=== PATIENT | female | born 2000 | race Hispanic/Latino ===

== ENCOUNTER 2024-05-21 21:09 | Emergency (ER) | payer OTHER ==
[~2024-05-21] VITALS: Ht 152.4 cm; Wt 66.5 kg
[~2024-05-21 21:09] MED LIST: PREFERA OB TAB1 EACH PO
--- OUTSIDE RECORDS SUMMARY | 2024-05-21 21:16 | XMS ---
PreManage Notification: AMISHA DÍAZ [employer] Director Events No recent Security Events currently on file CRITERIA MET - [address] in 90 Days CARE PROVIDERS -[facility] Dentist: School Fundraising Director [facility] PHONE: [phone] -Kourtney- Dentist: School Fundraising Director [facility] PHONE: [phone] FAIZA SPANGLER Current PHONE: Unknown [facility] Current CARE SYSTEM \F\ <UNAVAIL> PHONE: [phone] Rosy has no Care Guidelines for this patient. [place] VISIT COUNT (12 MO[address] [facility] [address] [place] [address] [place] TOTAL 5 NOTE: Visits indicate total known visits. ED/UCC VISIT TRACKING (12 MO.) 05/21/2024 21:10 [place] TYPE: Emergency COMPLAINT: - ANXIETY 04/05/2024 22:07 [facility] DIAGNOSES: - Unspecified acute noninfective otitis externa, right ear - Ear Ache - Otalgia 04/02/2024 13:41 [facility] [place] TYPE: Emergency DIAGNOSES: - Headache, unspecified - Unspecified acute noninfective otitis externa, right ear - EAR INFECTION HEADACHE CHILLS 12/18/2023 20:08 [facility] [place] TYPE: Emergency DIAGNOSES: - Cellulitis of left external ear - Irritant contact dermatitis due to other chemical products - Ear Pain 06/27/2023 22:44 [facility] TYPE: Emergency DIAGNOSES: - Dizziness and giddiness - Syncope and collapse - lip filler concern - Near Syncope INPATIENT VISIT TRACKING (12 MO.) No inpatient visits to display in this time frame [email or web address]
[2024-05-21 22:07] LABS: BASOPHILS 0.4 % (0-2); EOSINOPHILS 1.3 % (0-6); HEMATOCRIT 39.6 % (35.0-50.0); HEMOGLOBIN 13.3 g/dL (12.0-18.0); LYMPHOCYTES 39.3 % (24-44); MCH 26.3 (27-36); MCHC 33.5 g/dl (30-36); MCV 78.4 fl (81-99); MONOCYTES 7.3 % (0-12); NEUTROPHILS 51.7 % (39-80); PLATELET COUNT 242 K/uL (140-440); RBC 5.05 M/ul (4.3-5.7); RDW 14.4 (10.5-15.0)
[2024-05-21 22:27] LABS: ALBUMIN/GLOBULIN RATIO 1.11 (1.1-2.4); ANION GAP 12.6 (7-21); BILIRUBIN, TOTAL 1.4 mg/dL (0.2-1.0); BUN/CREATININE RATIO 15.95 (6.0-28.6); CREATININE, SERUM 0.94 mg/dL (0.55-1.02); POTASSIUM 3.6 mmol/L (3.5-5.1); PROTEIN, TOTAL 7.6 g/dL (6.4-8.2); TSH, 3RD GENERATION 4.261 uIU/mL (0.358-3.740)
[2024-05-21] MEDS ORDERED: hydrOXYzine pamoate 50 MG HOME.PACK PO ONE (23:00)
[2024-05-21 23:14] VITALS: BP 124/80
[2024-05-23 11:35] LABS: THYROXINE FREE 1.2 ng/dL (0.9-1.7)
== END 2024-05-21 23:14 | disposition home or self-care (01) ==
LOC: ED 21:09
PROVIDERS: Emergency Medicine
DX: F41.9 Anxiety disorder, unspecified (principal); R94.6 Abnormal results of thyroid function studies
CPT/HCPCS: 36415; 80053; 84439; 84443; 84703; 85025; 99283